=== PATIENT | male | born 1970 ===

== ENCOUNTER 2017-07-18 15:18 | Emergency (ER) | payer OTHER, BC ==
[2017-07-18 15:39] VITALS: BP 164/98; PULSE 82; RESP 16; TEMP 98; O2SAT 100
--- NOTE | 2017-07-18 16:06 | ED PDOC ---
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 His tetanus is not UTD. No other complaints Past Medical History Vital Signs: Last Vital Signs Temp 98.0 F 07/18/17 15:37 Pulse 82 07/18/17 15:37 Resp 16 07/18/17 15:37 BP 164/98 H 07/18/17 15:37 Pulse Ox 100 07/18/17 16:37 - Surgical History Surgical History: No Surg Hx - Family History Family History: States: Unknown Family Hx - Social History Current smoker - smoking cessation education provided: No - Allergies Allergies/Adverse Reactions: Allergies Allergy/AdvReac Type Severity Reaction Status Date / Time No Known Allergies Allergy Verified 07/18/17 15:37 Review of Systems Constitutional: Negative for: Fever Skin: Positive for: Lesions Physical Exam - Reviewed Nursing Documentation Reviewed: Yes Vital Signs Reviewed: Yes - Physical Exam Appears: Positive for: Well, Non-toxic Head Exam: Positive for: ATRAUMATIC, NORMAL INSPECTION, NORMOCEPHALIC Skin: Positive for: Warm, Dry. Negative for: Normal Color (1 cm superficial laceration noted to the posterior right hand proximal to the DIP. No bleeding. ) Eye Exam: Positive for: Normal appearance ENT: Positive for: Normal ENT Inspection Neck: Positive for: Normal Respiratory: Negative for: Respiratory Distress Back: Positive for: Normal Inspection Extremity: Positive for: Normal ROM, Capillary Refill (normal ). Negative for: Deformity Neurologic/Psych: Positive for: Alert, Oriented - ECG O2 Sat by Pulse Oximetry: 100 Medical Decision Making Medical Decision Making: Time: 16:00 Initial impression: Laceration Wound evaluated and is superficial. No obvious foreign bodies. Wound dressed with gauze, and wound care instructions given. Tetanus updated. ~ Scribe Attestation: Documented by~Katherine Carreon, acting as a scribe for EDILBERTO Vitale. Provider Scribe Attestation: All medical record entries made by the Scribe were at my direction and personally dictated by me. I have reviewed the chart and agree that the record accurately reflects my personal performance of the history, physical exam, medical decision making, and the department course for this patient. I have also personally directed, reviewed, and agree with the discharge instructions and disposition. Disposition - Clinical Impression Clinical Impression: Finger laceration, Tetanus toxoid vaccination administered at current visit - Patient ED Disposition Is Patient to be Admitted: No Doctor Will See Patient In The: Office Counseled Patient/Family Regarding: Diagnosis, Need For Followup - Disposition Disposition: Routine/Home Disposition Time: 16:07 Condition: STABLE Instructions: Laceration Without Closure (ED) Forms: Canary (Kazakh)
== END 2017-07-18 17:31 | disposition home or self-care (01) ==
LOC: H.ER 15:18
DX: S61.214A Laceration without foreign body of right ring finger without damage to nail, initial encounter (principal); W26.8XXA Contact with other sharp object(s), not elsewhere classified, initial encounter; Y99.0 Civilian activity done for income or pay